=== PATIENT | male | born 1945 | race Caucasian/White ===

== ENCOUNTER 2022-08-08 07:35 | Day surgery (SDC) | payer OTHER ==
[2022-08-08] MEDS ORDERED: Ringers Lactate 1,000 ML IV ONE (07:59)
[2022-08-08] MEDS ORDERED: MIDAZOLAM HCL 2 MG/2 ML INJ ONE (09:11)
[2022-08-08] MEDS ORDERED: propofoL 200 MG/20 ML VIAL IV ONE (09:11)
[2022-08-08] MEDS ORDERED: FENTANYL CITR 100 MCG/2 ML ONE ×2 (09:11→11:16)
[2022-08-08] MEDS ORDERED: ONDANSETRON 4 MG/2 ML VIAL ONE (09:12)
[2022-08-08] MEDS ORDERED: LIDOCAINE 2% MPF 5 ML VIAL ONE (09:12)
[2022-08-08] MEDS ORDERED: ROCURONIUM 50 MG/5 ML VIAL IV ONE (09:33)
[2022-08-08] MEDS ORDERED: BACITRACIN OINTMENT 14 GM TUBE TOP ONE ×2 (09:35→13:47)
[2022-08-08] MEDS ORDERED: BUPIVACAINE 0.5% PF 10 ML VIAL ONE ×2 (09:37→10:11)
[2022-08-08] MEDS ORDERED: EPINEPHRINE/PF 1 MG/ML AMP ONE (09:37)
[2022-08-08] MEDS ORDERED: GLYCOPYRROLATE 0.2 MG/ML SYR ONE (09:47)
[2022-08-08] MEDS ORDERED: SUCCINYLCHOLINE 20 MG/ML (10 ML) IV ONE (10:05)
[2022-08-08] MEDS ORDERED: EPHEDRINE SULF 50 MG/ML VIAL ONE (10:32)
[2022-08-08] MEDS ORDERED: NEOSTIGMINE 1 MG/ML -10 ML VIAL ONE (10:32)
[2022-08-08] MEDS ORDERED: CEFAZOLIN SODIUM 1 GM/VIAL ONE (11:52)
[2022-08-08 13:36] VITALS: BP 152/67; TEMP 97.7; O2SAT 97
[2022-08-08] MEDS ORDERED: HYDROCODONE/APAP 7.5/325 MG TAB ONE (13:51)
--- NOTE | 2022-08-10 10:54 | OP ---
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 Postoperative Diagnosis: Right lateral cheek basal cell carcinoma. Procedure: Excisional biopsy of right lateral cheek neoplasm with adjacent tissue transfer and rotat ional flap closure of wound defect under general sedation. Anesthesia: General endotracheal anesthesia was administered. I also infiltrated approximately 15 t o 18 mL of 0.25% Marcaine with 1:100,000 epinephrine at the incision site and rotational flap site. Estimated Blood Loss: Approximately 5 mL. Specimens: Obtained from the right lateral cheek and frozen section analysis was performed. 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 Complications: None. Disposition: Stable. The patient tolerated the procedure well. Indications For Procedure: The patient is a 76-year-old male, who presented to my outpatient clinic after a shave biopsy was performed of the right lateral cheek and results revealed basal cell carcino ma with positive margins. These were indications to bring the patient to operative suite for the abo ve-mentioned procedure. He understood, all questions were answered. Risks versus benefits, complica tions explained in detail and a consent form was signed, which was placed on the chart. Description Of Procedure: The patient was transferred from the preoperative holding area to the oper ative suite by Department of Anesthesia, placed on the operating table supine, and sedated and intuba janine in normal fashion. Table was rotated approximately 90 degrees. His head was rotated to the left . I infiltrated approximately 10 mL of 0.25% Marcaine with 1:100,000 epinephrine into the right late ral cheek excision site. The patient was then sterilely prepped and draped. The lesion was excised with a #15 blade Bard-Alvino scalpel through the epidermis down to the subderm al layer. Then, I excised the lesion completely utilizing monopolar electrocautery on a setting of 2 0 for coagulation. I was able to obtain a 4 mm margin of clean tissue around the lesion. The specim en was completely excised, and the lateral and superior margins were marked with different colored glover tures and handed off the field for frozen section analysis. The excised diameter was 3.0 x 2.5 cm. Hemostasis was achieved with monopolar electrocautery. Frozen section analysis revealed squamous marci l carcinoma completely excised with a nice margin of clean tissue around the lesion. The wound defect was large and unable to be closed primarily. Thus, a rotational cheek flap was crea janine with a #15 blade scalpel and monopolar electrocautery. The inferiorly based flap was then transf erred into the wound defect and sutured with a 4-0 Prolene in a simple interrupted fashion. These we re tacking sutures and then a large of Burow's triangle was excised from the inferomedial edge of the flap. I then reapproximated dermal layer with 4-0 Monocryl sutures in an interrupted fashion follow ed by epidermal layer closure with 4-0 Prolene in a continuous running fashion. A compressive dressi ng was placed and the patient was transferred back to Department of Anesthesia in stable condition. He did receive 2 g of Ancef and will be discharged home on oral and topical antibiotics and p.r.n. pa in medicine. He will follow up in the outpatient clinic in 1 week. The adjacent tissue transfer rot ational flap measurement was 9.5 x 4.5 cm, which was over 30 sq cm. RONALD/MURTAZA Voice ID: [id number] Report ID: [id number]
== END 2022-08-08 14:25 | disposition home or self-care (01) ==
LOC: OR 07:35
PROVIDERS: ATTEND Otolaryngology Facial Plastic Surgery
PROC: 0HX1XZZ Transfer Face Skin, External Approach (ICD-10-PCS; principal; 2022-08-08 09:30)
DX: C44.319 Basal cell carcinoma of skin of other parts of face (principal)
CPT/HCPCS: 88305; 88331; 88332; J0171; J0690; J2001; J2250; J2405; J2704; J2710; J3010; J7120